=== PATIENT | female | born 2000 | race American Indian/Alaskan Native ===

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

== ENCOUNTER 2019-11-24 10:16 | Outpatient (CLI) | payer BC ==
--- NOTE | 2019-11-26 12:17 | Ultrasound Report ---
EXAMINATION: Right Limited AXILLARY Ultrasound, 11/24/2019 INDICATION: Right axillary soft palpable abnormality COMPARISON: None. FINDINGS: Targeted ultrasound evaluation was performed of the area of interest. Sonography of the rig ht axilla at the site of the palpable abnormality shows a superficial ovoid mixed echogenicity lesion with moderately defined borders. This extends to the cutaneous border. This wider than tall 8.2 cm l esion has a thickness of 3.2 cm. The echo pattern strongly suggest this is a lipoma. This would also fit with the clinical description of a soft palpable mass. IMPRESSION: Findings in this young patient strongly suggest the palpable abnormality as a lipoma Follow up recommendation: Clinical confirmation is needed. If there is corresponding clinical opinion this is likely a lipoma, I was simply suggest 6 month follow-up ultrasound. BIRADS: 3: Probably benign Signer Name: Aly Marion MD Signed: 11/24/2019 11:51 AM Workstation Name: [id number]
== END 2019-11-24 10:17 | disposition home or self-care (01) ==
LOC: US 10:16
PROVIDERS: ATTEND Surgery
DX: R22.31 Localized swelling, mass and lump, right upper limb (principal)

== ENCOUNTER 2020-04-25 13:06 | Emergency (ER) | payer BC ==
[2020-04-25 13:36] VITALS: BP 142/79
--- NOTE | 2020-04-25 13:42 | Emergency Department Report ---
ED ENT HPI - General Chief complaint: Sore Throat Stated complaint: THROAT PAIN Time Seen by Provider: 04/25/20 13:23 Source: patient Mode of arrival: Ambulatory Limitations: No Limitations - History of Present Illness Initial comments: This is a 19-year-old female nontoxic, well nourished in appearance, no acute signs of distress presents to the ED with c/o of sore throat. Patient describes sore throat as swallowing razer blades. Patient denies any fever, chills, headache, stiff neck, nausea, vomiting, chest pain, shortness of breath, numbness or tingling. Patient denies any drooling or hoarseness. Patient denies any allergies or significant past medical history. MD complaint: sore throat -: days(s) Location: throat Severity: mild Severity scale (0 -10): 8 Quality: aching Consistency: constant Improves with: none Worsens with: swallowing Associated Symptoms: pain with swallowing, sore throat. denies: fever, cough, gum swelling, toothache, tinnitus, hearing loss, discharge from ear, rhinorrhea - Related Data Previous Rx's Medication Instructions Recorded Last Taken Type Cyclobenzaprine [Flexeril] 10 mg PO TID PRN #10 tablet 11/12/18 Unknown Rx Ibuprofen [Motrin] 800 mg PO Q8HR PRN #30 tablet 11/12/18 Unknown Rx predniSONE [Deltasone] 20 mg PO DAILY #5 tablet 11/12/18 Unknown Rx Amoxicillin [Amoxicillin TAB] 875 mg PO BID #20 tablet 04/25/20 Unknown Rx Nystas/Diphen/Xyl Visc/Mylanta 15 ml MM Q6H PRN 5 Days #1 bottle 04/25/20 Unknown Rx [Magic Mouthwash] Allergies Allergy/AdvReac Type Severity Reaction Status Date / Time No Known Allergies Allergy Verified 11/12/18 11:29 ED Dental HPI - General Chief complaint: Sore Throat Stated complaint: THROAT PAIN Time Seen by Provider: 04/25/20 13:23 Source: patient Mode of arrival: Ambulatory Limitations: No Limitations - Related Data Previous Rx's Medication Instructions Recorded Last Taken Type Cyclobenzaprine [Flexeril] 10 mg PO TID PRN #10 tablet 11/12/18 Unknown Rx Ibuprofen [Motrin] 800 mg PO Q8HR PRN #30 tablet 11/12/18 Unknown Rx predniSONE [Deltasone] 20 mg PO DAILY #5 tablet 11/12/18 Unknown Rx Amoxicillin [Amoxicillin TAB] 875 mg PO BID #20 tablet 04/25/20 Unknown Rx Nystas/Diphen/Xyl Visc/Mylanta 15 ml MM Q6H PRN 5 Days #1 bottle 04/25/20 Unknown Rx [Magic Mouthwash] Allergies Allergy/AdvReac Type Severity Reaction Status Date / Time No Known Allergies Allergy Verified 11/12/18 11:29 ED Review of Systems ROS: Stated complaint: THROAT PAIN Other details as noted in HPI Comment: All other systems reviewed and negative Constitutional: denies: chills, fever Eyes: denies: eye pain, eye discharge, vision change ENT: throat pain. denies: ear pain Respiratory: denies: cough, shortness of breath, wheezing Cardiovascular: denies: chest pain, palpitations Endocrine: no symptoms reported Gastrointestinal: denies: abdominal pain, nausea, diarrhea Genitourinary: denies: urgency, dysuria, discharge Musculoskeletal: denies: back pain, joint swelling, arthralgia Skin: denies: rash, lesions Neurological: denies: headache, weakness, paresthesias Psychiatric: denies: anxiety, depression Hematological/Lymphatic: denies: easy bleeding, easy bruising ED Past Medical Hx - Past Medical History Previous Medical History?: Yes Hx GERD: Yes - Surgical History Past Surgical History?: Yes - Social History Smoking Status: Never Smoker Substance Use Type: None - Medications Home Medications: Home Medications Medication Instructions Recorded Confirmed Last Taken Type Cyclobenzaprine [Flexeril] 10 mg PO TID PRN #10 tablet 11/12/18 Unknown Rx Ibuprofen [Motrin] 800 mg PO Q8HR PRN #30 tablet 11/12/18 Unknown Rx predniSONE [Deltasone] 20 mg PO DAILY #5 tablet 11/12/18 Unknown Rx Amoxicillin [Amoxicillin TAB] 875 mg PO BID #20 tablet 04/25/20 Unknown Rx Nystas/Diphen/Xyl Visc/Mylanta 15 ml MM Q6H PRN 5 Days #1 bottle 04/25/20 Unknown Rx [Magic Mouthwash] ED Physical Exam - General Limitations: No Limitations General appearance: alert, in no apparent distress - Head Head exam: Present: atraumatic, normocephalic - Eye Eye exam: Present: normal appearance - Expanded ENT Exam Expanded Ear exam: Present: normal external inspection Mouth exam: Present: normal external inspection, tongue normal. Absent: drooling, trismus, muffled voice Teeth exam: Present: normal inspection Throat exam: Positive: tonsillar erythema, tonsillomegaly (2+), tonsillar exudate, other (Uvula midline. No tonsillar abscess.). Negative: R peritonsillar mass, L peritonsillar mass - Neck Neck exam: Present: normal inspection, full ROM. Absent: tenderness, meningismus, lymphadenopathy - Respiratory Respiratory exam: Absent: respiratory distress - Cardiovascular Cardiovascular Exam: Present: regular rate - Extremities Exam Extremities exam: Present: full ROM - Back Exam Back exam: Present: full ROM - Neurological Exam Neurological exam: Present: alert, oriented X3, normal gait - Psychiatric Psychiatric exam: Present: normal affect, normal mood - Skin Skin exam: Present: warm, dry, intact, normal color. Absent: rash ED Course Vital Signs 04/25/20 13:31 Temperature 98.7 F Pulse Rate 94 H Respiratory 16 Rate Blood Pressure 142/79 [Left] O2 Sat by Pulse 98 Oximetry - Reevaluation(s) Reevaluation #1: 04/25/20 13:40 Patient is speaking in full sentences with no signs of distress noted. ED Medical Decision Making - Medical Decision Making This is a 19-year-old female that presents with tonsillitis with exudate and pharyngitis. Patient is stable was examined by me. There is no drooling. No tonsillar abscess noted. Uvula is midline. Patient be treated with a marked amoxicillin. Vital signs are stable. Patient is not febrile and normal heart rate. Patient was instructed to Follow-up with a primary care doctor in 3-5 days or if symptoms worsen and continue return to emergency room as soon as possible. At time of discharge, the patient does not seem toxic or ill in appearance. No acute signs of distress noted. Patient agrees to discharge treatment plan of care. No further questions noted by the patient. Critical care attestation.: If time is entered above; I have spent that time in minutes in the direct care of this critically ill patient, excluding procedure time. ED Disposition Clinical Impression: Tonsillitis with exudate Pharyngitis Qualifiers: Pharyngitis/tonsillitis etiology: unspecified etiology Qualified Code(s): J02.9 - Acute pharyngitis, unspecified Disposition: DC-01 TO HOME OR SELFCARE Is pt being admited?: No Does the pt Need Aspirin: No Condition: Stable Instructions: Pharyngitis, [id number], Tonsillitis Additional Instructions: Follow-up with a primary care doctor in 3-5 days or if symptoms worsen and continue return to emergency room as soon as possible. Prescriptions: Amoxicillin [Amoxicillin TAB] 875 mg PO BID #20 tablet Nystas/Diphen/Xyl Visc/Mylanta [Magic Mouthwash] 15 ml MM Q6H PRN 5 Days #1 bottle PRN Reason: sore throat Referrals: PRIMARY CAREMD [Referring] - 3-5 Days GRIS PORTER MD [Staff Physician] - 3-5 Days Forms: Work/School Release Form(ED) Time of Disposition: 13:42
== END 2020-04-25 14:18 | disposition home or self-care (01) ==
LOC: ED 13:06
DX: J03.90 Acute tonsillitis, unspecified (principal); K21.9 Gastro-esophageal reflux disease without esophagitis; Z79.899 Other long term (current) drug therapy
CPT/HCPCS: 99282

== ENCOUNTER 2020-07-31 13:22 | Emergency (ER) | payer BC ==
[2020-07-31 13:36] VITALS: BP 127/74
[2020-07-31] MEDS ORDERED: SODIUM CHLORIDE 0.9% 1000 ML 1,000 ML IV ONE ×2 (14:44→20:17)
--- NOTE | 2020-07-31 14:47 | Event Note ---
ED Screening Note Date of service: 07/31/20 Time: 14:50 ED Screening Note: 19-year-old female presents to the ER today with complaints of feeling dizzy. She states that it started while she was taking a shower. Partner states that patient also got cold and appeared pale and she was breathing abnormally. Patient states that she has been having chest pain for the past 4 days including today she is also been vomiting for the past few days and has not had much of an appetite for the past 2 weeks. Patient does admit to history of anemia as well as GERD. She is currently on her menstrual cycle and states that has been a bit heavier than normal. She was on control to help control heavy menstrual periods but she stopped taking it last year. She is not currently on any iron supplements. This initial assessment/diagnostic orders/clinical plan/treatment(s) is/are subject to change based on patients health status, clinical progression and re- assessment by fellow clinical providers in the ED. Further treatment and workup at subsequent clinical providers discretion. Patient/guardian urged not to elope from the ED as their condition may be serious if not clinically assessed and managed. Initial orders include: Labs including EKG
[2020-07-31 15:28] LABS: Basophils % (Auto) 0.5 % (0.0-1.8); Eosinophils % (Auto) 0.2 % (0.0-4.3); Hematocrit 36.4 % (30.3-42.9); Lymphocytes # (Auto) 1.2 K/mm3 (1.2-5.4); Lymphocytes % (Auto) 16.5 % (13.4-35.0); Mean Corpuscular HGB Conc 33 % (30-34); Mean Corpuscular Volume 79 fl (79-97); Monocytes # (Auto) 0.6 K/mm3 (0.0-0.8); Monocytes % (Auto) 8.4 % (0.0-7.3); Platelet Count 222 K/mm3 (140-440); Red Blood Count 4.62 M/mm3 (3.65-5.03); Red Cell Distribution Width 17.8 % (13.2-15.2)
[2020-07-31 15:46] LABS: Alanine Aminotransferase 14 units/L (7-56); Albumin 4.3 g/dL (3.9-5); BUN/Creatinine Ratio 13; Blood Urea Nitrogen 8 mg/dL (7-17); Calcium 9.2 mg/dL (8.4-10.2); Hemolysis Index 5
[2020-07-31 19:24] LABS: Bacteria,Urine 1+ /HPF (Negative); Bilirubin,Urine NEG (Negative); Blood,Urine MOD (Negative); Color,Urine Yellow (Yellow); Mucus,Urine FEW /HPF; Protein,Urine <15 mg/dL mg/dL (Negative); Urobilinogen,Urine < 2.0 mg/dL (<2.0)
[2020-07-31 19:26] LABS: Benzodiazepines Screen,Urine Negative; Cocaine Screen,Urine Negative; Methadone Screen,Urine Negative; Opiate Screen,Urine Negative
[2020-07-31 19:37] LABS: Amphetamine Screen,Urine Positive; Cannabinoid Screen,Urine Positive
--- NOTE | 2020-07-31 19:39 | Emergency Department Report ---
ED General Adult HPI - General Chief complaint: Weakness Stated complaint: WEAKNESS Time Seen by Provider: 07/31/20 19:34 Source: patient Mode of arrival: Wheelchair Limitations: No Limitations - History of Present Illness Initial comments: 19-year-old female patient with history of anemia and GERD presents emergency department complaints of generalized weakness starting today. Patient states she was taking a shower when she began to feel weak. States her boyfriend called EMS because he was afraid she might lose consciousness. Currently, patient reports chest pain/epigastric pain with associated nausea. Patient is on her second day of her menstrual cycle. She is not currently on iron supplements or contraceptives. States her current menstrual cycle has been heavier than usual. She has used approximately 5-6 pads/tampons today. Additionally, patient states that she has been experiencing decreased appetite for approximately 3 weeks. No recent fall, trauma, injury. Patient has never required a blood transfusion. No history of diabetes, hypertension, hyperlipidemia. No family history of early heart disease. No tobacco use. No venous thromboembolism risk factors identified on history. Denies fever, chills, cough, vomiting, diarrhea, constipation, syncope, seizure. Denies all other complaints at this time. - Related Data Previous Rx's Medication Instructions Recorded Last Taken Type Cyclobenzaprine [Flexeril] 10 mg PO TID PRN #10 tablet 11/12/18 Unknown Rx Ibuprofen [Motrin] 800 mg PO Q8HR PRN #30 tablet 11/12/18 Unknown Rx predniSONE [Deltasone] 20 mg PO DAILY #5 tablet 11/12/18 Unknown Rx Amoxicillin [Amoxicillin TAB] 875 mg PO BID #20 tablet 04/25/20 Unknown Rx Nystas/Diphen/Xyl Visc/Mylanta 15 ml MM Q6H PRN 5 Days #1 bottle 04/25/20 Unknown Rx [Magic Mouthwash] Famotidine [Pepcid] 20 mg PO BID #20 tablet 07/31/20 Unknown Rx Ondansetron [Zofran Odt] 4 mg PO Q4H #20 tab 07/31/20 Unknown Rx Allergies Allergy/AdvReac Type Severity Reaction Status Date / Time No Known Allergies Allergy Verified 11/12/18 11:29 ED Review of Systems ROS: Stated complaint: WEAKNESS Other details as noted in HPI Other: GENERAL: Positive for decreased appetite. ENT: Negative for ear pain, difficulty hearing, sore throat, nasal congestion, epistaxis. CARDIOVASCULAR: Positive for chest pain. PULMONARY: Negative for cough, dyspnea, wheezing, orthopnea, cyanosis. GASTROINTESTINAL: Positive for abdominal pain and nausea. MUSCULOSKELETAL: Negative for joint pain, joint swelling, myalgias, back pain, neck pain. NEUROLOGICAL: Positive for generalized weakness. INTEGUMENTARY: Negative for erythema, rash, diaphoresis, laceration, ecchymosis. HEMATOLOGICAL: Negative for hemoptysis, hematemesis, hematochezia, hematuria. PSYCHIATRIC: Negative for hallucinations, suicidal ideation, homicidal ideation, anxiety, depression. ED Past Medical Hx - Past Medical History Previous Medical History?: Yes Hx GERD: Yes - Surgical History Past Surgical History?: No - Social History Smoking Status: Never Smoker Substance Use Type: None - Medications Home Medications: Home Medications Medication Instructions Recorded Confirmed Last Taken Type Cyclobenzaprine [Flexeril] 10 mg PO TID PRN #10 tablet 11/12/18 Unknown Rx Ibuprofen [Motrin] 800 mg PO Q8HR PRN #30 tablet 11/12/18 Unknown Rx predniSONE [Deltasone] 20 mg PO DAILY #5 tablet 11/12/18 Unknown Rx Amoxicillin [Amoxicillin TAB] 875 mg PO BID #20 tablet 04/25/20 Unknown Rx Nystas/Diphen/Xyl Visc/Mylanta 15 ml MM Q6H PRN 5 Days #1 bottle 04/25/20 Un known Rx [Magic Mouthwash] Famotidine [Pepcid] 20 mg PO BID #20 tablet 07/31/20 Unknown Rx Ondansetron [Zofran Odt] 4 mg PO Q4H #20 tab 07/31/20 Unknown Rx ED Physical Exam - General Limitations: No Limitations - Other Other exam information: General: Awake and alert. No acute distress. BMI 34. Head: Atraumatic, normocephalic. Eyes: EOMI. Pupils are equal and round, reactive to light, no nystagmus. Normal sclera and conjunctiva. ENT: Oral mucosa is moist. Normal pharyngeal exam. Neck: Supple. No lymphadenopathy. Pulmonary: No respiratory distress. Clear to auscultation bilaterally. Cardiac: Regular rate and rhythm. Pulses are palpable and equal bilaterally. No lower extremity cyanosis or edema. Skin: Warm and dry. No rashes. Abdomen: Soft, non-protuberant. Patient reports epigastric pain without reproducible tenderness. No guarding, rigidity, or rebound. Bowel sounds are normal. No organomegaly or masses noted. Back: Normal alignment. No CVA tenderness. Extremities: Symmetrical. Full range of motion intact. Neurological: Alert and oriented, appropriately interactive, no focal deficits. Psych: Cooperative. Appropriate mood and affect. Speech is evenly metered. Thoughts are logically construed. ED Course Vital Signs 07/31/20 07/31/20 07/31/20 13:35 21:37 23:10 Temperature 98.1 F Pulse Rate 76 57 L Respiratory 14 16 16 Rate Blood Pressure 127/74 O2 Sat by Pulse 100 100 Oximetry ED Medical Decision Making - Lab Data Result diagrams: 07/31/20 15:09 07/31/20 15:09 - EKG Data 07/31/20 19:38 EKG shows normal sinus rhythm with a ventricular rate of 68 bpm. Normal axis. Normal CO interval. Normal QT interval. Good R wave progression. No ST segment changes. Over read by attending emergency physician, who agrees with this interpretation. - Medical Decision Making Differential diagnosis including but not limited to: cardiac arrhythmia, dehydration, electrolyte abnormality, hypoglycemia, anemia, adverse drug effect On reevaluation, patient remains stable. Repeat neurological exam remains intact. She is afebrile, hemodynamically stable, tolerating oral intake without difficulty, ambulatory without assistance. Labs are unremarkable. Chest x-ray is negative. test negative. Urinalysis without signs of infection. Drug screen positive for amphetamines and marijuana. Upon further interrogation, patient endorses using both of these substances last night, prior to onset of symptoms this morning. Suspect today's episode may be attributable to recent drug use. No clinical indication for further diagnostic work-up on an emergent basis at this time. Patient will be discharged home with appropriate symptomatic treatment and instructed to follow-up with primary care provider this week. Patient expressed understanding and is agreeable to plan of care. Lifestyle modifications discussed. Substance abuse discouraged. Strict return precautions provided. Repeat exam is unremarkable and benign. History, exam, diagnostic testing, and current condition do not suggest worrisome pathology to warrant further testing, continued ED treatment, admission, or surgical evaluation at this point. Given the low probability of a significant medical illness, it would be more likely to result in harm than benefit to perform further testing at this stage. Discussed findings, presumptive diagnosis, need for follow-up and specific signs/symptoms that should prompt immediate return to the emergency department. Instructions were explained in detail to the patient in addition to giving written discharge information. Patient expressed understanding and was given the opportunity to ask questions, all of which were satisfactorily answered prior to discharge home. Critical care attestation.: If time is entered above; I have spent that time in minutes in the direct care of this critically ill patient, excluding procedure time. ED Disposition Clinical Impression: Generalized weakness Disposition: DC-01 TO HOME OR SELFCARE Is pt being admited?: No Does the pt Need Aspirin: No Condition: Stable Instructions: Weakness Additional Instructions: Take Tylenol every 4 hours as needed for pain. Take Pepcid and Zofran as directed for GI symptoms. Rest. Drink plenty fluids. Gradually advance diet slowly as tolerated. Please discontinue illicit drug use. Follow-up with primary care provider this week. Call Sunday to schedule an appointment. See referral information below. Return to the emergency department immediately for new or worsening symptoms. Prescriptions: Famotidine [Pepcid] 20 mg PO BID #20 tablet Ondansetron [Zofran Odt] 4 mg PO Q4H #20 tab Referrals: GRIS PORTER MD [Staff Physician] - 3-5 Days [facility] [place] [Outside] - 3-5 Days [facility] [Outside] - 3-5 Days [facility] [Outside] - 3-5 Days [facility] [Provider Group] - 3-5 Days Time of Disposition: 20:42
[2020-07-31] MEDS ORDERED: FAMOTIDINE 20 MG/2 ML INJ IV ONE (19:48)
[2020-07-31] MEDS ORDERED: ONDANSETRON 4 MG/2 ML INJ IV ONE (19:48)
--- NOTE | 2020-07-31 20:28 | XRay Report ---
CHEST 2 VIEWS INDICATION / CLINICAL INFORMATION: chest pain. COMPARISON: None available. FINDINGS: SUPPORT DEVICES: None. HEART / MEDIASTINUM: No significant abnormality. LUNGS / PLEURA: No significant pulmonary or pleural abnormality. No pneumothorax. ADDITIONAL FINDINGS: No significant additional findings. IMPRESSION: 1. No acute findings. Signer Name: Hilary Montilla MD Signed: 07/31/2020 8:23 PM Workstation Name: [id number]
--- NOTE | 2020-08-05 12:52 | Electrocardiograph Report ---
[facility] Test Date: 2020-07-31 Test Time: 14:52:33 Pat Name: MABLE RMOERO Department: Room: Gender: F Pbx Technician: CARINA : 2000 Requested By: PANDA MEYERS Order Number: [id number] Reading MD: Krystin Downey Measurements Intervals [place] Rate: 68 P: 28 LA: 167 QRS: 30 QRSD: 88 T: 30 QT: 400 QTc: 426 Interpretive Statements Sinus rhythm ST elev, probable normal early repol pattern No previous ECG available for comparison Electronically Signed On 08-05-2020 12:52:37 EDT by Krystin Downey
== END 2020-07-31 23:11 | disposition home or self-care (01) ==
LOC: ED 13:22
DX: R53.1 Weakness (principal); K21.9 Gastro-esophageal reflux disease without esophagitis; Z79.899 Other long term (current) drug therapy
CPT/HCPCS: 36415; 71046; 80053; 80307; 81001; 83735; 84443; 84703; 85025; 93005; 96361; 96374; 96375; 99284; J2405; J7030

== ENCOUNTER 2021-06-28 08:52 | Day surgery (SDC) | payer BC ==
[~2021-06-28 08:52] MED LIST: SODIUM CHLORIDE 0.9% 1000 ML 1,000 ML IV SCH
--- NOTE | 2021-06-28 09:24 | Anesthesia Consultation ---
Anesthesia Consult and Med Hx Date of service: 06/28/21 - Airway Anesthetic Teeth Evaluation: Good ROM Head & Neck: Adequate Mental/Hyoid Distance: Adequate Mallampati Class: Class II Intubation Access Assessment: Probably Good - Pulmonary Exam CTA: Yes - Cardiac Exam Cardiac Exam: RRR - Pre-Operative Health Status ASA Pre-Surgery Classification: ASA2 Proposed Anesthetic Plan: MAC - Gastrointestinal Hx Gastroesophageal Reflux Disease: Yes - Hematic Hx Anemia: Yes - Other Systems Hx Substance Use: Yes (SOMETIMES MARIJUANA SMOKER) Hx Obesity: Yes
--- NOTE | 2021-06-28 09:24 | Anesthesia Day of Surgery ---
Anesthesia Day of Surgery - Day of Surgery Patient Examined: Yes Patient H&P Reviewed: Yes Patient is NPO: Yes
[2021-06-28] MEDS ORDERED: propofoL 200 MG/20 ML VIAL IV ONE (10:47)
[2021-06-28] MEDS ORDERED: MIDAZOLAM 2 MG/2 ML INJ ONE (10:47)
--- NOTE | 2021-06-28 10:58 | Short Stay Summary ---
Short Stay Documentation Date of service: 06/28/21 - History H&P: obtained from office - Allergies and Medications Current Medications: Allergies No Known Allergies Allergy (Verified 11/12/18 11:29) Home Medications Medication Instructions Recorded Confirmed Last Taken Type Ondansetron [Zofran Odt] 4 mg PO Q4H #20 tab 07/31/20 Unknown Rx Omeprazole 40 mg PO 06/24/21 Unknown History Active Medications Sodium Chloride (Nacl 0.9% 1000 Ml) 1,000 mls @ 50 mls/hr IV DIRECT PATRICK Stop: 06/28/21 20:00 - Brief post op/procedure progress note Date of procedure: 06/28/21 Procedure: see dictation Estimated blood loss: none Pathology: list (Antral biopsies for h pylori) Specimen disposition: to lab Condition: stable - Disposition Condition at discharge: Good Disposition: 01 HOME / SELF CARE / HOMELESS - Discharge Diagnoses (1) Epigastric pain Status: Acute (2) Nausea Status: Acute Short Stay Discharge Plan Activity: other (No driving for 24 hours) Weight Bearing Status: Full Weight Bearing Diet: regular Follow up with: PRIMARY MD ESTRELLA [Primary Care Provider] - 7 Days
--- NOTE | 2021-06-28 11:00 | Operative Report ---
Operative Report Operative Report: Date of procedure: 06/28/2021 Procedure: Esophagogastroduodenoscopy with biopsies of the antrum for H. pylori Preprocedure diagnosis: Persistent epigastric pain and nausea Post procedure diagnosis: Normal-appearing upper digestive tract. Endoscopist: Dr. Marin Anesthesia: Monitored anesthesia care per anesthesia department Medications: Propofol per anesthesia Estimated blood loss: 0 After careful discussion of the nature and purpose of the procedure as well as details the technique risks benefits and alternatives consent was obtained. The patient was placed in the left lateral decubitus position and medicated per anesthesia. The tip of the [employer] EQ 570 video scope was passed per orum under direct vision into the esophagus and advanced into the stomach and descending duodenum. The descending duodenum the duodenal bulb and pylorus were symmetrical and normal. The scope was withdrawn into the stomach and the stomach then gently insufflated with air. The antrum was normal. Biopsies were taken for H. pylori. The stomach was further insufflated and the scope was then retroflexed and partially withdrawn. The cardia, fundus, and body of the stomach were within normal limits and easily distensible.The scope was then withdrawn in the forward position. The esophagogastric junction was at. The esophageal body was normal throughout. The procedure was was well tolerated and the patient was observed in recovery. Impressions: Normal-appearing upper digestive tract. Plan: Await results of H. pylori biopsies. Consider ultrasound of the right upper quadrant if not done already. Electronically signed: Jose Cruz Marin MD
[2021-06-28 12:05] VITALS: BP 119/73
--- NOTE | 2021-06-28 12:27 | Post Anesthesia Evaluation ---
- Post Anesthesia Evaluation Patient Participated: Yes Airway Patent: Yes Stable Respiratory Function: Yes Nausea/Vomiting: No Temp > 96.8F: Yes Pain Manageable: Yes Adequeate Hydration: Yes Anesthesia Complications: No
== END 2021-06-28 11:50 | disposition home or self-care (01) ==
LOC: GIO 08:52
PROVIDERS: ATTEND Internal Medicine Gastroenterology
DX: R11.0 Nausea (principal); R10.13 Epigastric pain; K29.50 Unspecified chronic gastritis without bleeding; K21.9 Gastro-esophageal reflux disease without esophagitis; F17.210 Nicotine dependence, cigarettes, uncomplicated; D64.9 Anemia, unspecified; E66.9 Obesity, unspecified; Z72.89 Other problems related to lifestyle; Z68.37 Body mass index [BMI] 37.0-37.9, adult
CPT/HCPCS: 43239; 81025; 88305; 88342; J2250; J2704; J7030

== ENCOUNTER 2021-07-05 08:05 | Day surgery (SDC) | payer BC ==
[2021-07-05] MEDS ORDERED: LACTATED RINGERS 1,000 ML ONE (08:19)
[2021-07-05] MEDS ORDERED: ceFAZolin/STERILE WATER 2 GM/20 ML SYRINGE IV NR (10:00)
--- NOTE | 2021-07-05 10:06 | Anesthesia Day of Surgery ---
Anesthesia Day of Surgery - Day of Surgery Patient Examined: Yes Patient H&P Reviewed: Yes Patient is NPO: Yes
--- NOTE | 2021-07-05 10:07 | Anesthesia Consultation ---
Anesthesia Consult and Med Hx Date of service: 07/05/21 - Airway Anesthetic Teeth Evaluation: Chipped ROM Head & Neck: Adequate Mental/Hyoid Distance: Adequate Mallampati Class: Class II Intubation Access Assessment: Good - Pre-Operative Health Status ASA Pre-Surgery Classification: ASA3 Proposed Anesthetic Plan: MAC (GA if needed) - Pulmonary Hx Smoking: Yes (MARIJUANA ONLY) Hx Sleep Apnea: No (NOÉ PRE SCREEN LOW RISK) - Cardiovascular System Hx Hypertension: No - Central Nervous System Hx Back Pain: Yes (LOW) - Gastrointestinal Hx Gastroesophageal Reflux Disease: Yes - Hematic Hx Anemia: Yes - Other Systems Hx Alcohol Use: Yes (NOT FOR THE LAST 5 MONTHS) Hx Substance Use: Yes (MARIJUANA 3/DAY) Hx Cancer: No Hx Obesity: Yes (BMI 37.5)
[2021-07-05] MEDS ORDERED: LACTATED RINGERS 1,000 ML IV SCH (10:15)
[2021-07-05] MEDS ORDERED: HYDROmorphone 1 MG/1 ML INJ IV PRN (11:00)
[2021-07-05] MEDS ORDERED: MIDAZOLAM 2 MG/2 ML INJ IV NR (11:00)
[2021-07-05] MEDS ORDERED: BUPIVACAINE/PF (0.25%) 2.5 MG/ML 10 ML VIAL INFILTRATI ONE (11:14)
[2021-07-05] MEDS ORDERED: LIDOCAINE (1%) 10 MG/1 ML VIAL 20 ML MDV ONE (11:14)
[2021-07-05] MEDS ORDERED: fentaNYL 100 MCG/2 ML INJ ONE (11:15)
[2021-07-05] MEDS ORDERED: MIDAZOLAM 2 MG/2 ML INJ ONE (11:15)
[2021-07-05] MEDS ORDERED: propofoL 200 MG/20 ML VIAL IV ONE ×3 (11:16→12:11)
[2021-07-05] MEDS ORDERED: ONDANSETRON 4 MG/2 ML INJ IV PRN (11:30)
[2021-07-05] MEDS ORDERED: LIDOCAINE MPF (2%) 20 MG/1 ML VIAL 5 ML ONE (11:51)
[2021-07-05] MEDS ORDERED: LIDOCAINE (1%) 10 MG/1 ML VIAL 20 ML MDV INFILTRATI ONE (11:59)
[2021-07-05] MEDS ORDERED: BUPIVACAINE/PF (0.25%) 2.5 MG/ML 30 ML VIAL INFILTRATI ONE (11:59)
[2021-07-05] MEDS ORDERED: SODIUM CHLORIDE 0.9% IRR 1,500 ML BOTTLE IR ONE (11:59)
[2021-07-05] MEDS: HYDROmorphone 1 MG/1 ML INJ IV PRN ×2 (12:55→13:05)
--- NOTE | 2021-07-05 13:10 | Short Stay Summary ---
Short Stay Documentation Date of service: 07/05/21 - History Principal diagnosis: soft tissue mass right axilla H&P: obtained from office - Allergies and Medications Current Medications: Allergies No Known Allergies Allergy (Verified 11/12/18 11:29) Home Medications Medication Instructions Recorded Confirmed Last Taken Type No Known Home Medications [No 06/29/21 06/29/21 Unknown History Reported Home Medications] Active Medications Hydromorphone HCl (Hydromorphone 1 Mg/1 Ml Inj) 0.5 mg IV Q10MIN PRN PRN Reason: Pain , Severe (7-10) Last Admin: 07/05/21 12:55 Dose: 0.5 mg Hydromorphone HCl (Hydromorphone 1 Mg/1 Ml Inj) 0.25 mg IV Q10MIN PRN PRN Reason: Pain, Moderate (4-6) Cefazolin Sodium 3 gm/ Sodium (Chloride) 100 mls @ 200 mls/hr IV ONCE@0830 PATRICK Stop: 07/05/21 17:00 Lactated Ringer's (Lactated Ringers) 1,000 mls @ 100 mls/hr IV DIRECT PATRICK Midazolam HCl (Midazolam 2 Mg/2 Ml Inj) 2 mg IV PREOP NR Stop: 07/05/21 23:59 - Brief post op/procedure progress note Date of procedure: 07/05/21 Pre-op diagnosis: soft tissue mass right axilla Post-op diagnosis: same Procedure: excision soft tissue mass right axilla Anesthesia: MAC, local Findings: 9 cm fatty mass of the right axilla, subcutaneous tissues with chronic inflammation near skin Surgeon: DIANE CHOW Estimated blood loss: minimal Pathology: list (soft tissue mass right axilla - marked with suture - 1. long superficial, 2. short medal, 3. double stitch cephalad) Short Stay Discharge Plan Activity: other (no heavy lifting with right arm) Diet: regular Wound: open to air, per your surgeon's advice Additional Instructions: SEE PRINTED INSTRUCTIONS Follow up with: PRIMARY CARE, [Primary Care Provider] - 7 Days DIANE CHOW DO [Staff Physician] - 14 Days Forms: Work/School Release Form Prescriptions: Ibuprofen [Motrin] 800 mg PO Q8HR PRN #30 tablet PRN Reason: Pain, Moderate (4-6) HYDROcodone/APAP 5-325 [[place] 5/325] 1 each PO Q6HR PRN #10 tablet PRN Reason: Pain , Severe (7-10) Ondansetron [Zofran Odt] 4 mg PO Q8HR PRN #30 tab.rapdis PRN Reason: Nausea
--- NOTE | 2021-07-05 13:50 | Post Anesthesia Evaluation ---
- Post Anesthesia Evaluation Patient Participated: Yes Airway Patent: Yes Stable Respiratory Function: Yes Nausea/Vomiting: No Temp > 96.8F: Yes Pain Manageable: Yes Adequeate Hydration: Yes Anesthesia Complications: No Block Receding Appropriately: Not Applicable Patient on Ventilator: No
--- NOTE | 2021-07-05 14:34 | Operative Report ---
Operative Report Operative Report: Date of procedure: 07/05/21 Pre-op diagnosis: soft tissue mass right axilla Post-op diagnosis: same Procedure: excision soft tissue mass right axilla Anesthesia: MAC, local Findings: 9 cm fatty mass of the right axilla, subcutaneous tissues with chronic inflammation near skin Surgeon: DIANE CHOW Estimated blood loss: minimal Pathology: list (soft tissue mass right axilla - marked with suture - 1. long superficial, 2. short medial, 3. double stitch cephalad) Disposition: PACU to home Condition: Stable HPI and indication: Patient is a 20-year-old female with a history of swelling in her right axilla for many years. The patient was seen in the office for evaluation. She was sent for an ultrasound which showed a superficial soft tissue mass consistent with lipoma. As the mass was becoming more bothersome, it was recommended that the mass be excised. All risks, benefits, alternatives to surgery including but not limited to infection, bleeding, injury to surrounding structures, recurrence of the lipoma, wound infection were discussed with the patient. All questions were answered and consent obtained. Procedure in detail: The patient was identified in the preoperative area and the operative site marked. She was taken back to the operating room and placed on the operating table in supine position. After anesthesia was induced the right arm was abducted and the axilla was prepped and draped in the usual sterile fashion and a timeout performed. Local anesthetic was infiltrated into the skin at the intended incision site over the midpoint of the mass. An incision was made using a 15 blade. Dissection was carried down through the skin and subcutaneous tissue using electrocautery. The mass was identified. There was chronic inflammation of the mass where it was densely adhered to the dermis. The mass was carefully dissected free from the dermis using sharp dissection. Dissection was carried circumferentially around the mass using a hemostat and electrocautery. The mass was lobulated and fatty, with gross appearance of a lipoma. The borders of the mass were not smooth and difficult to distinguish from the surrounding normal fat. Therefore it was transected in the superficial tissues in order to avoid injury to deep structures in the axilla. The mass was removed in 2 pieces. This was sutured back together in anatomic position and marked with stitches. The long suture agarwal the superficial border, the short suture marked the medial border and the double suture agarwal the cephalad border. The mass measured approximately 9 cm in greatest dimension. This was passed off the table as a specimen. The wound was then irrigated and hemostasis very carefully ensured. No major nerves or vessels were encountered during the dissection. Surgicel powder was sprayed into the cavity to further ensure hemostasis. The wound was then closed in layered fashion. The deep dermal layer was closed with 3-0 Vicryl interrupted stitches. The skin was closed with 4 Monocryl running subcuticular stitch and skin glue. Once the glue was dry a folded up 4 x 4 gauze was placed over the surgical site and secured with Elastoplast tape for compression. At the end of the case all sponge, instrument, sharp counts were correct x2. Patient's mother was updated.
[2021-07-05 16:07] VITALS: BP 150/87
== END 2021-07-05 13:30 | disposition home or self-care (01) ==
LOC: OR 08:05
PROVIDERS: ATTEND Surgery
DX: M79.89 Other specified soft tissue disorders (principal); N64.89 Other specified disorders of breast; K21.9 Gastro-esophageal reflux disease without esophagitis; E66.9 Obesity, unspecified; F31.9 Bipolar disorder, unspecified; D64.9 Anemia, unspecified; Z98.890 Other specified postprocedural states; Z79.899 Other long term (current) drug therapy; Z68.37 Body mass index [BMI] 37.0-37.9, adult; Z87.440 Personal history of urinary (tract) infections; Z72.89 Other problems related to lifestyle
CPT/HCPCS: 11406; 12034; 81025; 88307; J0690; J1170; J2250; J2405; J2704; J3010; J3490; J7120

== ENCOUNTER 2021-08-18 16:03 | Outpatient (CLI) | payer BC | END 2021-08-18 16:04 | disposition home or self-care (01) | LOC: LAB 16:03 | PROVIDERS: ATTEND Obstetrics & Gynecology | DX: Z11.3 Encounter for screening for infections with a predominantly sexual mode of transmission (principal) | CPT/HCPCS: 36415; 86706 ==